=== PATIENT | female | born 1940 | race Caucasian/White ===

== ENCOUNTER 2016-11-12 22:00 | Inpatient (IN) | payer OTHER ==
--- NOTE | 2016-11-13 00:27 | ED ORDER SUMMARY ---
..... Patient: NIRAV FLOREZ OrderSheet VisitID: [id number] [address] [place] [address] 76y, F Registration Date/Time: 11/12/2016 ORDER SHEET Weight: 103.4 kg (stated) Allergies: Penicillins, Sulfa Antibiotics GENERAL ORDERS: Blood Culture (No) (N/A) Urgent (22:11/12/2016 Shwetha De La Fuente) (Ack 22:22 AMcQuoid ER Tech1) (22:40 EHassan R.N.) CBC w Diff Urgent (22:11/12/2016 Shwetha De La Fuente) (Ack 22:22 AMcQuoid ER Tech1) (22:40 EHassan R.N.) CMP Urgent (22:11/12/2016 Shwetha De La Fuente) (Ack 22:22 AMcQuoid ER Tech1) (22:40 EHassan R.N.) UA-Culture if indicated Urgent (22:11/12/2016 Shwetha De La Fuente) (Ack 22:22 AMcQuoid ER Tech1) (22:40 EHassan R.N.) Lactic Acid for Sepsis Protocol Urgent (22:11/12/2016 Shwetha De La Fuente) (Ack 22:22 AMcQuoid ER Tech1) (22:40 EHassan R.N.) PCT (Procalcitonin) Urgent (22:21 11/12/2016 Shwetha De La Fuente) (Ack 22:22 AMcQuoid ER Tech1) (22:40 EHassan R.N.) BNP Urgent (22:53 11/12/2016 Shwetha De La Fuente) (Ack 22:54 AMcQuoid ER Tech1) (22:58 EHassan R.N.) MEDICATION ORDERS: IV FLUIDS: IV Saline Lock (22:11/12/2016 Shwetha De La Fuente) (22:41 EHassan R.N.) Clindamycin IV 600 mg/50mL (NOW) (22:53 11/12/2016 Shwetha De La Fuente) (23:09 EHassan R.N.) IV NS : initial bolus none -, then 1000 mL/hr for X2 (NOW) (23:22 11/12/2016 Shwetha De La Fuente) (23:32 Elvis DoverNSolitario) ORDER SHEET NOTES: This document has not been locked and should not be saved in the medical record.
--- NOTE | 2016-11-13 00:27 | ED ORDER SUMMARY ---
..... Patient: NIRAV FLOREZ OrderSheet [facility] VisitID: [id number] [address] [place] [address] 76y, F Registration Date/Time: 11/12/2016 ORDER SHEET Weight: 103.4 kg (stated) Allergies: Penicillins, Sulfa Antibiotics GENERAL ORDERS: Blood Culture (No) (N/A) Urgent (22:11/12/2016 Shwetha De La Fuente) (Ack 22:22 AMcQuoid ER Tech1) (22:40 EHassan R.N.) CBC w Diff Urgent (22:11/12/2016 Shwetha De La Fuente) (Ack 22:22 AMcQuoid ER Tech1) (22:40 EHassan R.N.) CMP Urgent (22:11/12/2016 Shwetha De La Fuente) (Ack 22:22 AMcQuoid ER Tech1) (22:40 EHassan R.N.) UA-Culture if indicated Urgent (22:11/12/2016 Shwetha De La Fuente) (Ack 22:22 AMcQuoid ER Tech1) (22:40 EHassan R.N.) Lactic Acid for Sepsis Protocol Urgent (22:11/12/2016 Shwetha De La Fuente) (Ack 22:22 AMcQuoid ER Tech1) (22:40 EHassan R.N.) PCT (Procalcitonin) Urgent (22:21 11/12/2016 Shwetha De La Fuente) (Ack 22:22 AMcQuoid ER Tech1) (22:40 EHassan R.N.) BNP Urgent (22:53 11/12/2016 Shwetha De La Fuente) (Ack 22:54 AMcQuoid ER Tech1) (22:58 EHassan R.N.) MEDICATION ORDERS: IV FLUIDS: IV Saline Lock (22:11/12/2016 Shwetha De La Fuente) (22:41 EHassan R.N.) Clindamycin IV 600 mg/50mL (NOW) (22:53 11/12/2016 Shwetha De La Fuente) (23:09 EHassan R.N.) IV NS : initial bolus none -, then 1000 mL/hr for X2 (NOW) (23:22 11/12/2016 Shwetha De La Fuente) (23:32 Elvis DoverNSolitario) ORDER SHEET NOTES: This document has not been locked and should not be saved in the medical record.
--- NOTE | 2016-11-13 00:27 | ED CLINICAL REPORT ---
Clinical Report - Physicians/Mid Levels [facility] [address] [place] [address] 11/12/2016 22:02 Patient: NIRAV FLOREZ *This is a preliminary document and is subject to change Time Seen: 22:04; initial patient contact. Arrived- By ambulance. Historian- patient. HISTORY OF PRESENT ILLNESS Chief Complaint: FALL. The injury occurred just prior to arrival. Fell. Occurred at home. The patient denies pain. No blow to the head, neck pain or loss of consciousness. Not dazed. REVIEW OF SYSTEMS No numbness, loss of vision, chest pain, difficulty breathing or weakness. No nausea or vomiting. She has had dizziness. She sustained a single small skin laceration to the left leg (from a cat bite yesterday.). She has had fever. All systems otherwise negative, except as recorded above. PAST HISTORY Contusion. Syncope. GI Bleeding. Tetanus Status. ADDITIONAL SURGERIES: Cholecystectomy. Hysterectomy. Knee Surgery. Tonsillectomy. Medications: Anastrozole Oral (Tablet 1 mg), Daily. Effexor XR Oral 150, Daily. Furosemide Oral (Tablet 40 mg), 6 pills daily. Gemfibrozil Oral (Tablet 600 mg), daily. Levothroid Oral 100 mcg, daily. Lisinopril Oral (Tablet 20 mg), Daily. Tylenol with Codeine #3 Oral, as needed. Allergies: Penicillins. Sulfa Antibiotics. SOCIAL HISTORY Never smoker. No alcohol use or drug use. ADDITIONAL NOTES The nursing notes have been reviewed with agreement regarding the chief complaint, PMH and patient medications and allergies. PHYSICAL EXAM Vital Signs: 11/12/2016 22:04 BP: 153/54. HR: 111. RR: 20. O2 saturation: 97%. Temp: 100.3 F. Pain level now: 0/10. Have been reviewed. Hypertensive. Tachycardic. Respiratory rate normal. Temperature normal. Oxygen saturation normal. Appearance: Alert. Oriented X3. No acute distress. Head: Head non-tender. No swelling of head. ENT: No dental injury. Dry mucous membranes present. Neck: Painless ROM. Non-tender. CVS: Heart sounds normal. Rate normal. Respiratory: No respiratory distress. Breath sounds normal. Skin: Medium area of cellulitis with erythema and warmth to left leg. Single small, superficial, flap 1.5 cm laceration to left leg. Extremities: Bilateral 2+ pitting edema of the lower extremities involving both lower legs. Neuro: Oriented X 3. LABS, X-RAYS, AND EKG Laboratory Tests: CBC w Diff: (DUYEN: 11/12/2016 22:40) ( [facility] 11/12/2016 23:15) Final results Test Result Flag Units (Reference) WHITE BLOOD COUNT 23.3 H K/uL (4.5-11.5) RED BLOOD COUNT 4.27 M/uL (4.00-5.20) HEMOGLOBIN 13.5 gm/dL (12.0-16.0) HEMATOCRIT 40.2 % (36.0-46.0) MEAN CELL VOLUME 94 fL (80-100) MEAN CORPUSCULAR HGB 32 pg (26-34) MEAN CORPUSCULAR HGB CONC 34 g/dL (31-37) RED CELL DISTRIBUTION WIDTH 13.8 % (11.6-14.8) PLATELET COUNT 221 K/uL (150-400) POLY % 74 % (50-75) BAND % 12 H % (0-8) LYMPH 7 L % (25-40) MONO 7 % (3-14) EOSINOPHIL % 0 % (0-4) BASOPHIL % 0 % (0-2) METAMYELOCYTE % 0 % (0-1) MYELOCYTE 0 % (0-1) OTHER CELL TYPE 0 BNP: (DUYEN: 11/12/2016 22:40) ( [facility] 11/12/2016 23:18) Final results Test Result Flag Units (Reference) B-TYPE NATRIURETIC PEPTIDE 11.3 pg/ml (5-100) Lactate, Serum: (DUYEN: 11/12/2016 22:40) ( [facility] 11/12/2016 23:09) Final results Test Result Flag Units (Reference) LACTIC ACID 2.0 mmol/L (0.4-2.0) [id number]: (DUYEN: 11/12/2016 22:40) ( MsgRcvd 11/12/2016 23:18) Final results Test Result Flag Units (Reference) PROCALCITONIN 2.3 H ng/mL (0-0.5) PCT Concentration: Interpretation : Risk/option for action PCT <=0.5 ng/mL : Systemic : Low risk forinfection(sepsis): progression to severeis not likely. : systemic infection.Local bacterial : CAUTION-PCT levelsinfection is : below 0.5 ng/mL do notpossible. : exclude an infection,because localizedinfections (withoutsystemic signs) may beassociated with suchlow levels. If PCT ismeasured very earlyafter a bacterialchallenge (usually <6hours), these valuesmay still be low. Inthis case PCT shouldbe re-assessed 6-24hours later. PCT >0.5 and : Systemic infection: Moderate risk for<= 2 ng/mL : (sepsis) is : progression to severepossible, but : systemic infection.other conditions : The patient should beare known to : closely monitoredelevate PCT. : both clinically andby re-assessing PCTwithin 6-24 hours. PCT > 2 ng/mL : Systemic infection: High risk for(sepsis) is likely: progression to severeunless other : systemic infection.causes are known. : PCT >= 10 ng/mL : Important systemic: High likelihood ofinflammatory : severe sepsis orresponse, almost : septic shock.exclusively due to:severe bacterial :sepsis or septic :shock. : CMP: (DUYEN: 11/12/2016 22:40) ( MsgRcvd 11/12/2016 23:02) Final results Test Result Flag Units (Reference) GLUCOSE 129 H mg/dL (70-110) BUN 24 H mg/dL (7-18) CREATININE 1.1 mg/dL (0.6-1.3) Estimated GFR 51.19 mL/min Estimated GFR- >60 mL/min Note: Persistent reduction over 3 months in eGFR<60 mL/min/1.73 m2 defines CKD. Patients with eGFR values>=60 mL/min/1.73 m2 may also have CKD if evidence ofpersistent proteinuria. Additional information may be foundat www.kidney.org. SODIUM 135 L mmol/L (136-145) POTASSIUM 4.5 mmol/L (3.5-5.1) CHLORIDE 100 mmol/L (98-107) CARBON DIOXIDE 24 mmol/L (21-32) CALCIUM 8.9 mg/dL (8.5-10.1) TOTAL PROTEIN 6.9 g/dL (6.4-8.2) ALBUMIN 3.6 g/dL (3.3-5.0) BILIRUBIN, TOTAL 0.6 mg/dL (0.0-1.0) ALKALINE PHOSPHATASE 73 U/L (46-116) AST (SGOT) 26 U/L (15-37) ALT (SGPT) 46 U/L (12-78) . PROGRESS AND PROCEDURES Discussed case with hospitalist, (00:[address] Soto. Asked for a dose of Vanc in addition to the Clindamycin already given). Reviewed test results and need for additional work-up. Agreed upon decision to admit. Health care provider will see patient in hospital. John Moreno Dr.
--- NOTE | 2016-11-13 00:27 | ED NURSING NOTES ---
Clinical Report - Nurses [facility] [address] [place] [address] 11/12/2016 22:02 Patient: NIRAV FLOREZ TRIAGE Triage time 2208 PM. Acuity: LEVEL 3. Chief Complaint: (Ground level fall). Alert. No acute distress. SEPSIS SCREEN: Sepsis Screen. Negative (no infection suspected/documented). YAMILA COMA SCORE: Yamila Coma Scale: 15- eyes open spontaneously (4); best verbal response- oriented x 4 (5); best motor response- obeys commands (6). --22:24 Yuki Mattson R.N. 22:04 11/12/16. BP: 153/54. HR: 111. RR: 20. O2 saturation: 97% on room air. Temp: 100.3 F. Pain level now: 0/10. --22:24 Yuki Mattson R.N. late entry - 22:04. --22:49 Yuki Mattson R.N. Weight: 103.4 kg stated. Height/Length: 64 inches Per Patient. BMI: 39.2. --22:05 Yuki Mattson R.N. Medications Anastrozole Oral (Tablet 1 mg), Daily. Effexor XR Oral 150, Daily. Furosemide Oral (Tablet 40 mg), 6 pills daily. Gemfibrozil Oral (Tablet 600 mg), daily. Levothroid Oral 100 mcg, daily. Lisinopril Oral (Tablet 20 mg), Daily. Tylenol with Codeine #3 Oral, as needed. --22:07 Yuki Mattson R.N. Allopurinol Oral 100 mg, daily. --22:26 Yuki Mattson R.N. Allergies Penicillins. Sulfa Antibiotics. --22:07 Yuki Mattson R.N. Medication/allergy information source: the patient. --22:24 Yuki Mattson R.N. History Arrived by EMS. Historian: patient. Primary physician (Dr. Hernández). ( Pt states being in the bathroom and the next thing she remembers she was on the floor, pt did experience nauseous/ no vomiting denies any body aches/H/A/ double vision/ SOB/. Pt's heard a loud noise and found conscious sitting against the bathtub on the floor. Brought here by EMS). This started today. ( Pt noted to have LLE red/swollen, admits to getting bitten by her cat yesterday. Pt noted to have a gash on her left lower leg/dark blue in color). No fever, weakness, cough, difficulty breathing or skin rash. Denies muscle aches. Treatment CHANNEL CEMENTER: None. See EMS report. PAST MEDICAL HX: Immunizations: up-to-date. SOCIAL HX: Former smoker, end date 1989. No alcohol use or drug use. ABUSE ASSESSMENT: No report of abuse. SELF HARM ASSESSMENT: A self harm assessment was performed. The patient answered "no" to the question "Do you have thoughts of harming or killing yourself?" and "Have you recently had thoughts about harming or killing others?". NUTRITIONAL RISK ASSESSMENT: The nutritional risk assessment revealed no deficiencies. FUNCTIONAL ASSESSMENT: Functional assessment: no impairments noted. LEARNING NEEDS ASSESSMENT: The learning needs assessment revealed no barriers. FALL RISK ASSESSMENT: Fall risk assessment completed. Risk factors identified include patient age greater than 65 years, history of fall and impairment of mobility and hearing. Fall interventions initiated. Patient placed on stretcher. Side rails up x2. Patient visible from nurses' station. Call light in reach of patient. Instructed not to get up without assistance. SKIN INTEGRITY ASSESSMENT: Skin integrity risk assessment completed. No skin integrity risk identified. --22:24 Yuki Mattson R.N. PAST MEDICAL HX: Immunizations: up-to-date. The patient is post-menopausal. Sexual history - sexually active. No contraception. ( Tetanus unk). --22:49 Yuki Mattson R.N. PROBLEMS: Contusion. Syncope. GI Bleeding. Tetanus Status. --22:08 Yuki Mattson R.N. Fall. Arthritis. --00:19 Yuki Mattson R.N. Breast Cancer. --01:18 Yuki Mattson R.N. ADDITIONAL SURGERIES: Cholecystectomy. Hysterectomy. Knee Surgery. Tonsillectomy. --22:08 uYki Mattson R.N. Interventions ID band on patient. --22:24 Yuki Mattson R.N. PHYSICAL ASSESSMENT To room via stretcher. GENERAL / NEURO / PSYCH: Alert. Oriented X 4. Appears in no acute distress. HEENT: Pupils equal, round and reactive to light. Mucous membranes are pink. RESPIRATORY: Respirations not labored. Breath sounds within normal limits. CVS: Normal sinus rhythm noted. Pulses within normal limits. GI / : Abdomen soft and nontender and normal bowel sounds. SKIN: Skin intact. Skin is warm and dry. Normal skin turgor. --22:24 Yuki Mattson R.N. NURSING PROGRESS NOTES 22:14 11/12/2016 One (1) unsuccessful IV access attempt including the right antecubital space. Applied pressure dressing. --: Mackenzie Sweet 22:24 11/12/16. BP: 123/79. HR: 109. RR: 20. O2 saturation: 98% on room air. Temp: 100.3 F. Pain level now: 0/10. --22:25 Yuki Mattson R.N. Cardiac rhythm: sinus tachycardia. The initial plan of care for this patient has been created This plan of care was discussed with the patient and family. forest pathology professor, pulse oximeter and end tidal CO2 monitor placed on patient. Patient gowned. Warming measures: blanket applied. Two patient identifiers checked. Call light placed in reach. Side rails up x 2. Bed placed in lowest position. Brakes of bed on. --22:25 Yuki Mattson R.N. 22:36 11/12/2016 Site #1 started via IV in the left antecubital space with an 20g angiocath; two attempts. Blood drawn: rainbow set. Labeled in the presence of the patient and sent to the lab. Saline lock flushed. --22:41 Yuki Mattson R.N. forest pathology professor, pulse oximeter and NIBP monitor placed on patient; monitor alarms on. Patient ID band checked for patient name, birthdate and medical record number: patient confirmed. Blood samples drawn from the left antecubital space with Vacutainer 22g by nurse per protocol ; labeled in presence of the patient and sent to lab: rainbow set: blood culture (1st set). Reassurance given. --22:42 Yuki Mattson R.N. 22:41 11/12/16. BP: 125/98. HR: 109. RR: 20. O2 saturation: 95% on room air. Pain level now: 0/10. --22:42 Yuki Mattson R.N. ( LLE cat bite measures 2cm by 1cm). --22:47 Yuki Mattson R.N. <<STRICKEN ENTRY-- 23:11/12/2016 Started 600 mg of Clindamycin IVPB in bag #1 50 mL; at 100 mL/hr over 30 minute(s) via site #1 via IV pump. IV patency established. IV site checked: no pain, redness, or swelling. IV flushed thoroughly pre- and post-medication administration. --23: Yuki Mattson R.N. --END STRIKE>> Other. --23: Yuki Mattson R.N. 23:11/12/2016 Started 600 mg of Clindamycin IVPB in bag #1 50 mL; at 100 mL/hr over 30 minute(s) via site #1 via IV pump. Allergies verified and confirmed 5 rights. IV patency established. IV site checked: no pain, redness, or swelling. IV flushed thoroughly pre- and post-medication administration. --23: Yuki Mattson R.N. Cardiac rhythm: normal sinus rhythm. forest pathology professor, pulse oximeter and NIBP monitor placed on patient. Reassurance given. Two patient identifiers checked. Call light placed in reach. Side rails up x 2. Brakes of bed on. --23:10 Yuki Mattson R.N. 23:11/12/16. BP: 103/40. HR: 102. RR: 20. O2 saturation: 96%. Pain level now: 0/10. --23:10 Yuki Mattson R.N. 23:32 11/12/2016 Started bag #1 1000 mL IV Fluids IV NS (Saline); at 999 mL/hr over 1 hour(s) via site #1 via dial-a-flow. Allergies verified and confirmed 5 rights. IV patency established. IV site checked: no pain, redness, or swelling. IV flushed thoroughly pre- and post-medication administration. --23:32 Yuki Mattson R.N. 23:33 11/12/2016 Clindamycin IVPB Discontinued: bag #1 infused upon admission. Total amount infused: 50 mL. IV patency established. IV site checked: no pain, redness, or swelling. IV flushed thoroughly. --23:33 Yuki Mattson R.N. 23:31 11/12/16. BP: 115/64. HR: 99. RR: 22. O2 saturation: 95%. Pain level now: 0. --23:36 Ykui Mattson R.N. Cardiac rhythm: normal sinus rhythm. Reassurance given. Reassessment after fluids administered. She is calm and has had no adverse reaction. Overall patient status is the same- she states feels better. GENERAL / NEURO / PSYCH: Denies headache or anxiety. CVS: Normal sinus rhythm noted. GI / : Denies nausea. Two patient identifiers checked. Call light placed in reach. --23:36 Yuki Mattson R.N. 23:29 11/12/2016 Clindamycin IVPB Response: no adverse reaction. --23:39 Yuki Mattson R.N. Patient given inpatient H&P form; patient states she is unable to complete it at this time. --23:46 McQuoid, Jackie, ER Tech1 Reassurance given. Reassessment after fluids administered. She is calm. Overall patient status is improved- she states feels better. Call light placed in reach. Side rails up x 2. Brakes of bed on. --00:31 Yuki Mattson R.N. 00:29 11/13/16. BP: 119/43. HR: 101. RR: 17 (regular). O2 saturation: 97% on room air. Temp: 99.8 F (oral). Pain level now: 02/05. --00:31 Yuki Mattson R.N. 00:37 11/13/2016 TYLENOL W CODEINE (Acetaminophen-Codeine) PO Tablets 1 tab given. Allergies verified and confirmed 5 rights. --00:37 Yuki Mattson R.N. 00:57 11/13/2016 Started 1.5 gm of Vancomycin IVPB in bag #1 500 mL; at 350 mL/hr over 1.5 hour(s) via site #1 via IV pump. Allergies verified and confirmed 5 rights. IV patency established. IV site checked: no pain, redness, or swelling. IV flushed thoroughly pre- and post-medication administration. --01:02 Yuki Mattson R.N. 01:03 11/13/2016 IV Fluids IV NS Bag Change: bag #1 completed. Total amount infused: 1000. STARTED bag #2 (1000 mL) at 999 mL/hr via IV pump. Confirmed 5 rights. IV patency established. IV site checked: no pain, redness, or swelling. IV flushed thoroughly. --01:03 Yuki Mattson R.N. Care transferred and report given (CORINE Hurtado). --01:44 Yuki Mattson R.N. 01:30 11/13/2016 TYLENOL W CODEINE PO Response: no adverse reaction symptoms have improved. --01:45 Yuki Mattson R.N. 01:30 11/13/2016 Vancomycin IVPB Continued: at the rate of 350 mL/hr. 350 mL remaining bag #1. IV patency established. IV site checked: no pain, redness, or swelling. IV flushed thoroughly. --01:45 Yuki Mattson R.N. 01:31 11/13/2016 IV Fluids IV NS Continued: upon transfer at the rate of 999 mL/hr. 800 mL remaining bag #2. IV patency established. IV site checked: no pain, redness, or swelling. IV flushed thoroughly. --01:46 Yuik Mattson R.N. DISPOSITION / DISCHARGE 01:14 11/13/2016 Site #1 reassessed; patent and infusing well. Good blood return present. --01:14 Yuki Mattson R.N. Condition at departure: improved and stable. The goals identified in the patient's plan of care were met. Transported via stretcher by nurse. Report was given to a nurse via a phone call. All questions were answered. Report was acknowledged and care was transferred. (CORINE Hurtado). --01:16 Yuki Mattson R.N. 01:14 11/13/16. BP: 110/31. HR: 93. RR: 16 (regular and unlabored). O2 saturation: 100%. Temp: 98.9 F (oral). Pain level now: 01/06. --01:16 Yuki Mattson R.N. Departure time: 0130 AM. --01:44 Yuki Mattson R.N. Locked/Released at 11/13/2016 1:46 by Yuki Mattson R.N.
--- NOTE | 2016-11-13 00:27 | ED CLINICAL REPORT ---
Clinical Report - Physicians/Mid Levels [facility] [address] [place] [address] 11/12/2016 22:02 Patient: NIRAV FLOREZ *This is a preliminary document and is subject to change Time Seen: 22:04; initial patient contact. Arrived- By ambulance. Historian- patient. HISTORY OF PRESENT ILLNESS Chief Complaint: FALL. The injury occurred just prior to arrival. Fell. Occurred at home. The patient denies pain. No blow to the head, neck pain or loss of consciousness. Not dazed. REVIEW OF SYSTEMS No numbness, loss of vision, chest pain, difficulty breathing or weakness. No nausea or vomiting. She has had dizziness. She sustained a single small skin laceration to the left leg (from a cat bite yesterday.). She has had fever. All systems otherwise negative, except as recorded above. PAST HISTORY Contusion. Syncope. GI Bleeding. Tetanus Status. ADDITIONAL SURGERIES: Cholecystectomy. Hysterectomy. Knee Surgery. Tonsillectomy. Medications: Anastrozole Oral (Tablet 1 mg), Daily. Effexor XR Oral 150, Daily. Furosemide Oral (Tablet 40 mg), 6 pills daily. Gemfibrozil Oral (Tablet 600 mg), daily. Levothroid Oral 100 mcg, daily. Lisinopril Oral (Tablet 20 mg), Daily. Tylenol with Codeine #3 Oral, as needed. Allergies: Penicillins. Sulfa Antibiotics. SOCIAL HISTORY Never smoker. No alcohol use or drug use. ADDITIONAL NOTES The nursing notes have been reviewed with agreement regarding the chief complaint, PMH and patient medications and allergies. PHYSICAL EXAM Vital Signs: 11/12/2016 22:04 BP: 153/54. HR: 111. RR: 20. O2 saturation: 97%. Temp: 100.3 F. Pain level now: 0/10. Have been reviewed. Hypertensive. Tachycardic. Respiratory rate normal. Temperature normal. Oxygen saturation normal. Appearance: Alert. Oriented X3. No acute distress. Head: Head non-tender. No swelling of head. ENT: No dental injury. Dry mucous membranes present. Neck: Painless ROM. Non-tender. CVS: Heart sounds normal. Rate normal. Respiratory: No respiratory distress. Breath sounds normal. Skin: Medium area of cellulitis with erythema and warmth to left leg. Single small, superficial, flap 1.5 cm laceration to left leg. Extremities: Bilateral 2+ pitting edema of the lower extremities involving both lower legs. Neuro: Oriented X 3. LABS, X-RAYS, AND EKG Laboratory Tests: CBC w Diff: (DUYEN: 11/12/2016 22:40) ( [facility] 11/12/2016 23:15) Final results Test Result Flag Units (Reference) WHITE BLOOD COUNT 23.3 H K/uL (4.5-11.5) RED BLOOD COUNT 4.27 M/uL (4.00-5.20) HEMOGLOBIN 13.5 gm/dL (12.0-16.0) HEMATOCRIT 40.2 % (36.0-46.0) MEAN CELL VOLUME 94 fL (80-100) MEAN CORPUSCULAR HGB 32 pg (26-34) MEAN CORPUSCULAR HGB CONC 34 g/dL (31-37) RED CELL DISTRIBUTION WIDTH 13.8 % (11.6-14.8) PLATELET COUNT 221 K/uL (150-400) POLY % 74 % (50-75) BAND % 12 H % (0-8) LYMPH 7 L % (25-40) MONO 7 % (3-14) EOSINOPHIL % 0 % (0-4) BASOPHIL % 0 % (0-2) METAMYELOCYTE % 0 % (0-1) MYELOCYTE 0 % (0-1) OTHER CELL TYPE 0 BNP: (DUYEN: 11/12/2016 22:40) ( [facility] [place]/12[place] 23:18) Final results Test Result Flag Units (Reference) B-TYPE NATRIURETIC PEPTIDE 11.3 pg/ml (5-100) Lactate, Serum: (DUYEN: 11/12/2016 22:40) ( [facility] [place] 11/12/2016 23:09) Final results Test Result Flag Units (Reference) LACTIC ACID 2.0 mmol/L (0.4-2.0) [id number]: (DUYEN: 11/12/2016 22:40) ( [facility]cv[facility] 11/12/2016 23:18) Final results Test Result Flag Units (Reference) PROCALCITONIN 2.3 H ng/mL (0-0.5) PCT Concentration: Interpretation : Risk/option for action PCT <=0.5 ng/mL : Systemic : Low risk forinfection(sepsis): progression to severeis not likely. : systemic infection.Local bacterial : CAUTION-PCT levelsinfection is : below 0.5 ng/mL do notpossible. : exclude an infection,because localizedinfections (withoutsystemic signs) may beassociated with suchlow levels. If PCT ismeasured very earlyafter a bacterialchallenge (usually <6hours), these valuesmay still be low. Inthis case PCT shouldbe re-assessed 6-24hours later. PCT >0.5 and : Systemic infection: Moderate risk for<= 2 ng/mL : (sepsis) is : progression to severepossible, but : systemic infection.other conditions : The patient should beare known to : closely monitoredelevate PCT. : both clinically andby re-assessing PCTwithin 6-24 hours. PCT > 2 ng/mL : Systemic infection: High risk for(sepsis) is likely: progression to severeunless other : systemic infection.causes are known. : PCT >= 10 ng/mL : Important systemic: High likelihood ofinflammatory : severe sepsis orresponse, almost : septic shock.exclusively due to:severe bacterial :sepsis or septic :shock. : CMP: (DUYEN: 11/12/2016 22:40) ( MsgRcvd 11/12/2016 23:02) Final results Test Result Flag Units (Reference) GLUCOSE 129 H mg/dL (70-110) BUN 24 H mg/dL (7-18) CREATININE 1.1 mg/dL (0.6-1.3) Estimated GFR 51.19 mL/min Estimated GFR- >60 mL/min Note: Persistent reduction over 3 months in eGFR<60 mL/min/1.73 m2 defines CKD. Patients with eGFR values>=60 mL/min/1.73 m2 may also have CKD if evidence ofpersistent proteinuria. Additional information may be foundat www.kidney.org. SODIUM 135 L mmol/L (136-145) POTASSIUM 4.5 mmol/L (3.5-5.1) CHLORIDE 100 mmol/L (98-107) CARBON DIOXIDE 24 mmol/L (21-32) CALCIUM 8.9 mg/dL (8.5-10.1) TOTAL PROTEIN 6.9 g/dL (6.4-8.2) ALBUMIN 3.6 g/dL (3.3-5.0) BILIRUBIN, TOTAL 0.6 mg/dL (0.0-1.0) ALKALINE PHOSPHATASE 73 U/L (46-116) AST (SGOT) 26 U/L (15-37) ALT (SGPT) 46 U/L (12-78) . PROGRESS AND PROCEDURES Discussed case with hospitalist, (00:[address] Soto. Asked for a dose of Vanc in addition to the Clindamycin already given). Reviewed test results and need for additional work-up. Agreed upon decision to admit. Health care provider will see patient in hospital. John Moreno Dr.
[2016-11-13 01:40] VITALS: BP 137/28
--- NOTE | 2016-11-13 01:46 | ED MED RECONCILIATION SUMMARY ---
Patient: NIRAV FLOREZ Medication Reconciliation Report Merged With [facility] VisitID: [id number] [address] [place] [address] 76y, F Registration Date/Time: 11/12/2016 Weight: 103.4 kg Height/Length: 64 in. BMI: 39.2 ALLERGIES: Penicillins, Sulfa Antibiotics The patient's Home Medications are listed below: THE FOLLOWING MEDICATIONS NEED TO BE RECONCILED: Allopurinol Oral 100 mg, daily Anastrozole Oral (1 mg), Daily Effexor XR Oral 150, Daily Furosemide Oral (40 mg), 6 pills daily Gemfibrozil Oral (600 mg), daily Levothroid Oral 100 mcg, daily Lisinopril Oral (20 mg), Daily Tylenol with Codeine #3 Oral The source(s) of the original Home Medication information: patient The following Medications were given to the patient in the Emergency Department: Clindamycin [IVPB] IVPB bolus 0, then 600 mg 100 mL/hr, administered: 11/12/2016 11:09:00 PM IV NS IV Fluids bolus 0, then 999 mL/hr, administered: 11/12/2016 11:32:00 PM TYLENOL W CODEINE [PO] PO 1 tab, administered: 11/13/2016 12:37:00 AM Vancomycin [IVPB] IVPB bolus 0, then 1.5 gm 350 mL/hr, administered: 11/13/2016 12:57:00 AM The following Medications were prescribed to the patient: None.
--- NOTE | 2016-11-13 01:46 | ED MAR SUMMARY ---
..... Medication Administration Record [facility] [address] [place] [address] Patient: NIRAV FLOREZ Visit ID: [id number] 76y, F Weight: 103.4 kg Height/Length: 64 in BMI: 39.2 ALLERGIES: Penicillins, Sulfa Antibiotics Start 23:09 11/12/2016 Yuki Mattson R.N., Stop 23:33 11/12/2016 Yuki Mattson R.N. Medication Administered: CLINDAMYCIN [IVPB], Dose: 600 mg IVPB over 30 minute(s), Rate: 100 mL/hr, Dispensed: 50 mL bag, Site: #1 left AC. Medication Ordered: Clindamycin IV 600 mg/50mL (NOW). Start 23:32 11/12/2016 Yuki Mattson R.N., Continued Upon Transfer 01:31 11/13/2016 Yuki Mattson R.N. Medication Administered: IV NS (SALINE), Dose: IV Fluids over 1 hour(s), Rate: 999 mL/hr, Dispensed: 1000 mL bag, Site: #1 left AC. Medication Ordered: IV NS : initial bolus none -, then 1000 mL/hr for X2 (NOW). Given 00:37 11/13/2016 Yuki Mattson R.N. Medication Administered: TYLENOL W CODEINE [PO] (ACETAMINOPHEN-CODEINE), Dose: 1 tab Tablets PO. Medication Ordered: Tylenol w Codeine PO 1 tab (NOW). Start 00:57 11/13/2016 Yuki Mattson R.N., Continued Upon Disposition 01:30 11/13/2016 Yuki Mattson R.N. Medication Administered: VANCOMYCIN [IVPB], Dose: 1.5 gm IVPB over 1.5 hour(s), Rate: 350 mL/hr, Dispensed: 500 mL bag, Site: #1 left AC. Medication Ordered: Vancomycin IV 1.5 gm/500 mL (NOW).
--- NOTE | 2016-11-13 01:46 | ED MAR SUMMARY ---
..... Medication Administration Record [facility] [address] [place] [address] Patient: NIRAV FLOREZ Visit ID: [id number] 76y, F Weight: 103.4 kg Height/Length: 64 in BMI: 39.2 ALLERGIES: Penicillins, Sulfa Antibiotics Start 23:09 11/12/2016 Yuki Mattson R.N., Stop 23:33 11/12/2016 Yuki Mattson R.N. Medication Administered: CLINDAMYCIN [IVPB], Dose: 600 mg IVPB over 30 minute(s), Rate: 100 mL/hr, Dispensed: 50 mL bag, Site: #1 left AC. Medication Ordered: Clindamycin IV 600 mg/50mL (NOW). Start 23:32 11/12/2016 Yuki Mattson R.N., Continued Upon Transfer 01:31 11/13/2016 Yuki Mattson R.N. Medication Administered: IV NS (SALINE), Dose: IV Fluids over 1 hour(s), Rate: 999 mL/hr, Dispensed: 1000 mL bag, Site: #1 left AC. Medication Ordered: IV NS : initial bolus none -, then 1000 mL/hr for X2 (NOW). Given 00:37 11/13/2016 Yuki Mattson R.N. Medication Administered: TYLENOL W CODEINE [PO] (ACETAMINOPHEN-CODEINE), Dose: 1 tab Tablets PO. Medication Ordered: Tylenol w Codeine PO 1 tab (NOW). Start 00:57 11/13/2016 Yuki Mattson R.N., Continued Upon Disposition 01:30 11/13/2016 Yuki Mattson R.N. Medication Administered: VANCOMYCIN [IVPB], Dose: 1.5 gm IVPB over 1.5 hour(s), Rate: 350 mL/hr, Dispensed: 500 mL bag, Site: #1 left AC. Medication Ordered: Vancomycin IV 1.5 gm/500 mL (NOW).
--- NOTE | 2016-11-13 01:46 | ED DISCHARGE INSTRUCTIONS ---
Patient: NIRAV FLOREZ General Instructions [facility] VisitID: [id number] [address] [place] [address] 76y, F Registration Date/Time: 11/12/2016 Cellulitis of the left lower leg. Moderate leukocytosis with bandemia. INSTRUCTIONS Follow-up: Blood pressure screening was not performed during this visit because the patient has an active diagnosis of hypertension. The patient was admitted and blood pressure will be managed during the admission. (Electronically signed by John Moreno Dr. 11/13/2016 0:43)
--- NOTE | 2016-11-13 01:46 | ED DISCHARGE INSTRUCTIONS ---
Patient: NIRAV FLOREZ General Instructions [facility] VisitID: [id number] [address] [place] [address] 76y, F Registration Date/Time: 11/12/2016 Cellulitis of the left lower leg. Moderate leukocytosis with bandemia. INSTRUCTIONS Follow-up: Blood pressure screening was not performed during this visit because the patient has an active diagnosis of hypertension. The patient was admitted and blood pressure will be managed during the admission. (Electronically signed by John Moreno Dr. 11/13/2016 0:43)
--- NOTE | 2016-11-13 01:46 | ED MED RECONCILIATION SUMMARY ---
Patient: NIRAV FLOREZ Medication Reconciliation Report [facility] VisitID: [id number] [address] [place] [address] 76y, F Registration Date/Time: 11/12/2016 Weight: 103.4 kg Height/Length: 64 in. BMI: 39.2 ALLERGIES: Penicillins, Sulfa Antibiotics The patient's Home Medications are listed below: THE FOLLOWING MEDICATIONS NEED TO BE RECONCILED: Allopurinol Oral 100 mg, daily Anastrozole Oral (1 mg), Daily Effexor XR Oral 150, Daily Furosemide Oral (40 mg), 6 pills daily Gemfibrozil Oral (600 mg), daily Levothroid Oral 100 mcg, daily Lisinopril Oral (20 mg), Daily Tylenol with Codeine #3 Oral The source(s) of the original Home Medication information: patient The following Medications were given to the patient in the Emergency Department: Clindamycin [IVPB] IVPB bolus 0, then 600 mg 100 mL/hr, administered: 11/12/2016 11:09:00 PM IV NS IV Fluids bolus 0, then 999 mL/hr, administered: 11/12/2016 11:32:00 PM TYLENOL W CODEINE [PO] PO 1 tab, administered: 11/13/2016 12:37:00 AM Vancomycin [IVPB] IVPB bolus 0, then 1.5 gm 350 mL/hr, administered: 11/13/2016 12:57:00 AM The following Medications were prescribed to the patient: None.
--- NOTE | 2016-11-13 03:44 | Progress Note ---
Subjective General Admission History and Physical Examination Patient Name: Tamika Dwyer Admission Date: November 13, 2016 Primary Care Provider: Taqueria Mead M.D. Attending Physician: Fabian Soto M.D. Admitting Physician: Fabian Soto M.D. SUBJECTIVE Historian: Patient Reliability: Fair Chief Complaint: Fall, left leg laceration, fever History of Present Illness: The patient is a 76-year-old white female with a significant past medical history of hypothyroidism, gout, hyperlipidemia, breast cancer, uterine cancer, who presented to [facility] emergency department secondary to complaints of fall with left leg injury. [facility] ER evaluation was consistent with left lower leg cellulitis status post cat bite and UTI. Secondary to the above, the patient was admitted by Fabian Soto M.D. for further evaluation and treatment. The history of present illness began on the day prior to admission when the patient sustained a laceration due to cat bite on her left lower leg. She experienced an episode of lightheadedness without syncope. The patient felt weak and fell and could not arise. Secondary to this, the patient was transported to [facility] emergency department for further evaluation and treatment. [facility] ER evaluation was consistent with cat bite associated cellulitis left lower leg, and UTI. PAST MEDICAL HISTORY Illnesses: 1. Hypertension 2. Gout 3. Hyperlipidemia 4. Hypothyroidism 5. Breast CA 6. Uterine carcinoma 7. Depression Allergies: 1. Penicillin 2. Sulfa Medications: 1. Anastrozole Oral (Tablet 1 mg), Daily. 2. Effexor XR Oral 150, Daily. 3. Furosemide Oral (Tablet 40 mg), 6 pills daily. 4. Gemfibrozil Oral (Tablet 600 mg), daily. 5. Levothroid Oral 100 mcg, daily. 6. Lisinopril Oral (Tablet 20 mg), Daily. 7. Tylenol with Codeine #3 Oral, as needed. 8. Allopurinol Oral 100 mg, daily. Surgery: 1. Tonsillectomy/adenoidectomy 2. Amputation of first great toe left side 3. Bilateral knee replacement 4. Cholecystectomy 5. Partial hysterectomy 6. Lumpectomy right breast 7. Lipoma removal kidney Injuries: 1. No significant Hospitalizations: 1. For above surgery and medical problems FAMILY HISTORY Parents: 1. Father, , 78 melanoma,, 2. Mother, , 58, heart disease Siblings: 1. None Children: 1. None Other significant family history: None SOCIAL HISTORY 1. Marital Status: 2. Hinduism: Catholic 3. Education: High school, 2 years of college 4. Employment History: [employer] 5. Occupational health exposures: No significant HABITS 1. Tobacco: None 2. Drugs: None 3. Alcohol: None 4. Caffeine: None HEALTH SUPERVISION Item/Test 1. Not reviewed IMMUNIZATIONS: 1. Pneumococcal: 2015 2. Influenza: 2015 3. Tetanus: 2011 ADVANCED DIRECTIVES: 1. The patient has no advanced directives but wishes to be placed on a FULL CODE STATUS during her hospitalization REVIEW OF SYSTEMS Remarkable for those things stated in the history of present illness and past medical history. Seventeen point review of system completed with the following notable findings: General: Fatigue, weakness Skin: Rash, venous stasis dermatitis Eyes: Dryness, cataracts, decreased visual acuity requiring corrective lenses Ears: Hearing loss, bilateral hearing aids Nose: Recurrent sinus infections Respiratory: No complaints Cardiovascular: Peripheral edema, shortness of breath with exertion Genitourinary: Urinary frequency Gastrointestinal: History of peptic ulcer disease, heartburn, reflux Endocrine: Hypothyroidism Psychological: Depression Physical Exam Vital Signs / I&Os Vital Signs Date Time Temp Pulse Resp B/P Pulse O2 O2 Flow FiO2 Ox Delivery Rate 11/13 0140 99.3 94 18 137/28 98 Room Air General Appearance Alert, Oriented X3, Cooperative, No acute distress HEENT Atraumatic, PERRLA, EOMI, Moist mucous membranes Lungs Clear to auscultation, Normal air movement Neck Supple, No JVD, 2+ carotid pulse wo bruit Cardiovascular Regular rate and rhythm, Normal S1 and S2, No murmurs, gallops, rubs Abdomen Normal bowel sounds, Soft, No tenderness Extremities No cyanosis, No clubbing, Bilateral venous stasis dermatitis with left lower leg showing erythematous area lower leg with increased warmth and tenderness to palpation. [id number]. Amputation left great toe Neurological Cranial nerves intact, Strength 5/5 x4 ext's, No lateralizing signs Psych/Mental Status Mental status normal, Mood normal LAB Results Laboratory Tests 11/12 11/12 11/12 11/12 2240 2240 2240 2240 Chemistry Plasma Sodium (136 - 145 mmol/L) 135 Plasma Potassium (3.5 - 5.1 mmol/L) 4.5 Plasma Chloride (98 - 107 mmol/L) 100 CO2 (Enzymatic) (21 - 32 mmol/L) 24 BUN (7 - 18 mg/dL) 24 Creatinine (0.6 - 1.3 mg/dL) 1.1 Est GFR ( Amer) (mL/min) >60 Est GFR (Non-Af Amer) (mL/min) 51.19 Glucose (70 - 110 mg/dL) 129 Lactic Acid (0.4 - 2.0 mmol/L) 2.0 Plasma Calcium (8.5 - 10.1 mg/dL) 8.9 Total Bilirubin (0.0 - 1.0 mg/dL) 0.6 AST (15 - 37 U/L) 26 ALT (12 - 78 U/L) 46 Alkaline Phosphatase (46 - 116 U/L) 73 B-Natriuretic Peptide (5 - 100 pg/ml) 11.3 Total Protein (6.4 - 8.2 g/dL) 6.9 Albumin (3.3 - 5.0 g/dL) 3.6 Procalcitonin (0 - 0.5 ng/mL) 2.3 Hematology WBC (4.5 - 11.5 K/uL) 23.3 RBC (4.00 - 5.20 M/uL) 4.27 Hgb (12.0 - 16.0 gm/dL) 13.5 Hct (36.0 - 46.0 %) 40.2 MCV (80 - 100 fL) 94 MCH (26 - 34 pg) 32 RDW (11.6 - 14.8 %) 13.8 Neut % (Auto) (50 - 75 %) 74 Lymph % (Auto) (25 - 40 %) 7 [place] % (Auto) (3 - 14 %) 7 Eos % (Auto) (0 - 4 %) 0 Baso % (Auto) (0 - 2 %) 0 Band Neutrophils % (0 - 8 %) 12 Metamyelocytes % (0 - 1 %) 0 Myelocytes (0 - 1 %) 0 Other Cell Type 0 Plt Count, EDTA (150 - 400 K/uL) 221 PUBS MCHC (31 - 37 g/dL) 34 Microbiology Date/Time Procedure - Status Source Growth 11/12 2239 Blood Culture - RECD BLOOD 11/12 2239 Blood Culture - RECD BLOOD Assessment and Plan Problem List 1. Cellulitis of left leg without foot Plan -Patient presents with findings of cellulitis left lower leg -Status post cat bite on November 12, 2016 -Patient penicillin allergic placed on ertapenem 1 g IV daily/vancomycin -Monitor -Blood cultures 2 obtained 2. UTI (urinary tract infection) Status Acute Onset Date Unknown Plan -Patient with findings of UTI -Urine C&S pending -Blood cultures pending -Leukocytosis -Ertapenem/vancomycin as noted above 3. Hypothyroidism Status Chronic Onset Date Unknown Plan -Patient with history of hypothyroidism -Check TSH -Continue outpatient medical regimen, awaiting medication list from 4. Hypertension Status Chronic Onset Date Unknown Plan -Patient with history of hypertension -Low-salt diet -Continue outpatient medical regimen -Monitor 5. Gout Status Chronic Onset Date Unknown Plan -Patient with history of gout -Check uric acid -Continue outpatient medical regimen, awaiting medication list from 6. Hyponatremia Status Acute Onset Date Unknown Plan -Patient with findings of hyponatremia, mild -Sodium 135 -Monitor, normal saline IV fluids -No fluid restriction at this time 7. Hyperglycemia Status Chronic Onset Date Unknown Plan -Patient with findings of hyperglycemia -Patient with obesity, BMI 40 -Check hemoglobin A1c -Encourage weight reduction program, nutritional consult 8. Venous stasis dermatitis Status Chronic Onset Date Unknown Plan -patient with venous stasis dermatitis -Monitor -Consider compression stockings post discharge 9. Hyperlipidemia Status Chronic Onset Date Unknown Plan -Patient with history of hyperlipidemia -Check lipid profile -Continue outpatient medical regimen -Awaiting medication list from Current status: Fair, unstable Anticipated discharge date: Anticipated discharge in 3 days Anticipated discharge placement: Home Patient care time: Time spent in chart review, patient interview, physical exam, CPOE, and care documentation: 70 minutes Visit to patient today: 1 Complexity of care: High E&M Codes Admission: Inpt-High/[id number]
[2016-11-13 08:25] VITALS: BP 115/51
[2016-11-13 10:22] VITALS: BP 106/59
[2016-11-13 14:35] VITALS: BP 113/59
[2016-11-13 18:05] VITALS: BP 125/61
--- NOTE | 2016-11-13 22:40 | Progress Note ---
Subjective General Patient was wondering if her leg was getting more swollen and tender but now thinks it is better. Physical Exam Vital Signs / I&Os Vital Signs Date Time Temp Pulse Resp B/P Pulse O2 O2 Flow FiO2 Ox Delivery Rate 11/13 1805 98.8 81 18 125/61 99 Room Air 11/13 1435 98.1 80 18 113/59 100 Room Air 11/13 1022 98.4 84 18 106/59 98 Room Air 11/13 0825 98.6 86 18 115/51 98 Room Air 0.0 11/13 0200 Room Air 11/13 0140 99.3 94 18 137/28 98 Room Air Skin swollen left leg with bilateral venous stasis changes. Assessment and Plan Problem List 1. Cellulitis of left leg without foot Plan add on tube compression hose and monitor still.
[2016-11-13 22:52] VITALS: BP 131/75
[2016-11-14 01:55] VITALS: BP 129/78
[2016-11-14] MEDS ORDERED: EFFEXOR XR37.5 MG PO (02:25)
[2016-11-14] MEDS ORDERED: LASIX40 MG PO (02:26)
[2016-11-14] MEDS ORDERED: LISINOPRIL10 MG PO ×2 (02:26→02:27)
[2016-11-14] MEDS ORDERED: GEMFIBROZIL600 MG PO (02:26)
[2016-11-14] MEDS ORDERED: LEVOTHYROXINE100 MCG PO (02:27)
[2016-11-14] MEDS ORDERED: ASPIRIN 81 LOW81 MG PO (02:28)
[2016-11-14] MEDS ORDERED: TYLENOL/CODEINE #3 PO (02:30)
[2016-11-14 07:20] VITALS: BP 139/57
[2016-11-14 11:07] VITALS: BP 142/72
[2016-11-14 14:31] VITALS: BP 156/77
--- NOTE | 2016-11-14 16:05 | Progress Note ---
Subjective General Pt seen and examined this morning, in comparison to yesterday patient has very significant improvement. The erythema that existed before is almost completely resolved Constitutional Denies: Fever, Chills, Sweats, Weakness, Malaise, Other. Eyes Denies: Pain, Vision Change, Conjunctival Inflammation, Eyelid Inflammation, Redness, Other. Respiratory Denies: Cough, Dry, SOB w/exertion, Wheezing, Hemoptysis, Pleuritic Pain, Sputum , Other. Cardiovascular Denies: Chest Pain, Palpitations, Orthopnea, PND, Edema, Light-headedness, Other. Gastrointestinal Denies: Nausea, Vomiting, Abdominal Pain, Diarrhea, Constipation, Melena, Hematochezia, Other. Genitourinary Denies: Dysuria, Frequency, Incontinence, Hematuria, Retention, Other. Musculoskeletal Leg Pain. Denies: Neck Pain, Shoulder Pain, Arm Pain, Back Pain, Hand Pain, Foot Pain, Other. Skin Other (- dark color of left leg ). Neurological Denies: Weakness, Numbness, Incoordination, Change in speech, Confusion, Seizures, Other. Physical Exam Vital Signs / I&Os Vital Signs Date Time Temp Pulse Resp B/P Pulse O2 O2 Flow FiO2 Ox Delivery Rate 11/14 1431 98.1 69 20 156/77 99 Room Air 11/14 1107 98.4 73 20 142/72 99 Room Air 0.0 11/14 0720 139/57 11/14 0648 98.1 71 20 99 Room Air 0.0 11/14 0155 98.8 74 16 129/78 95 Room Air 11/13 2252 98.8 74 18 131/75 92 Room Air 11/13 1805 98.8 81 18 125/61 99 Room Air I&O 11/13 0800 11/13 1600 11/14 0000 Intake Total 1151 1586 950 Output Total 0 600 1500 Balance 1151 986 -550 General Appearance Alert, Oriented X3, No acute distress HEENT PERRLA, EOMI, Moist mucous membranes Lungs Normal air movement Cardiovascular Regular rate and rhythm, No murmurs, gallops, rubs Abdomen Soft, No tenderness, No guarding Extremities bilateral edema venous stasis bilaterally improved erythema of left leg Skin - improved erythema, continual pre tibial erythema Psych/Mental Status Mental status normal LAB Results Laboratory Tests 11/14 11/14 0530 1030 Chemistry Plasma Sodium (136 - 145 mmol/L) 139 Plasma Potassium (3.5 - 5.1 mmol/L) 4.3 Plasma Chloride (98 - 107 mmol/L) 108 CO2 (Enzymatic) (21 - 32 mmol/L) 25 BUN (7 - 18 mg/dL) 15 Creatinine (0.6 - 1.3 mg/dL) 0.7 Est GFR ( Amer) (mL/min) >60 Est GFR (Non-Af Amer) (mL/min) >60 Glucose (70 - 110 mg/dL) 108 Plasma Calcium (8.5 - 10.1 mg/dL) 7.7 Total Bilirubin (0.0 - 1.0 mg/dL) 0.4 AST (15 - 37 U/L) 26 ALT (12 - 78 U/L) 44 Alkaline Phosphatase (46 - 116 U/L) 64 Total Protein (6.4 - 8.2 g/dL) 5.6 Albumin (3.3 - 5.0 g/dL) 2.9 Hematology WBC (4.5 - 11.5 K/uL) 9.7 RBC (4.00 - 5.20 M/uL) 3.43 Hgb (12.0 - 16.0 gm/dL) 11.1 Hct (36.0 - 46.0 %) 32.8 MCV (80 - 100 fL) 96 MCH (26 - 34 pg) 32 RDW (11.6 - 14.8 %) 14.5 Neut % (Auto) (50 - 75 %) 75.9 Lymph % (Auto) (25 - 40 %) 15.7 [place] % (Auto) (3 - 14 %) 6.8 Eos % (Auto) (0 - 4 %) 1.6 Baso % (Auto) (0 - 2 %) 0 Plt Count, EDTA (150 - 400 K/uL) 164 PUBS MCHC (31 - 37 g/dL) 34 Toxicology Vancomycin Trough (10.0 - 20.0 ug/mL) 15.5 Assessment and Plan Problem List 1. Cellulitis of left leg without foot Plan -c/w antibiotics - will recommend leg elevation when not in bed - will obtain compression stockings 2. UTI (urinary tract infection) Status Acute Onset Date Unknown Plan - stable - no symptoms - c/w antibioitcs 3. Hypothyroidism Status Chronic Onset Date Unknown Plan - no pathology noted - will continue to monitor 4. Venous stasis dermatitis Status Chronic Onset Date Unknown Plan - compression stockings - leg elevation while in bed
[2016-11-14 18:33] VITALS: BP 156/53
[2016-11-14 22:57] VITALS: BP 166/68
[2016-11-15 02:21] VITALS: BP 138/75
[2016-11-15 10:42] VITALS: BP 146/74
--- NOTE | 2016-11-15 15:17 | Provider's Discharge Care Plan ---
Problem, Goal, Plan Problem List 1. Cellulitis of left leg without foot Instructions: Take meds as directed, - keep leg elevated 2. Venous stasis dermatitis
--- NOTE | 2016-11-15 15:17 | Provider's Discharge Care Plan ---
Problem, Goal, Plan Problem List 1. Cellulitis of left leg without foot Instructions: Take meds as directed, - keep leg elevated 2. Venous stasis dermatitis
[2016-11-15] MEDS ORDERED: CLINDAMYCIN HC300 MG PO (15:20)
--- NOTE | 2016-11-15 15:21 | Discharge Summary ---
Discharge Summary Report Admit Date 11/13/16 Discharge Date 11/15/16 Admission Diagnosis lower extremity cellulitis Discharge Diagnosis lower extremity cellulitis Brief History The patient is a 76-year-old white female with a significant past medical history of hypothyroidism, gout, hyperlipidemia, breast cancer, uterine cancer, who presented to [facility] emergency department secondary to complaints of fall with left leg injury. [facility] ER evaluation was consistent with left lower leg cellulitis status post cat bite and UTI. Secondary to the above, the patient was admitted by Fabian Soto M.D. for further evaluation and treatment. The history of present illness began on the day prior to admission when the patient sustained a laceration due to cat bite on her left lower leg. She experienced an episode of lightheadedness without syncope. The patient felt weak and fell and could not arise. Secondary to this, the patient was transported to [facility] emergency department for further evaluation and treatment. [facility] ER evaluation was consistent with cat bite associated cellulitis left lower leg, and UTI. Hospital Course Patient was admitted for lower extremity cellulitis and uti. Patient was treated with IV antibiotics and had improvement within the day of admission itself. Patient was additionally treated with lower extremity elevation and leg compression devices. Patient was seeen to ambulate without difficulty. After 2 days of IV antibiotics and the degreee of improvement it was seen that the patient could be discharged home on oral antibiotics. General Appearance Alert, Oriented X3, No acute distress HEENT PERRLA, Mucous membran moist/pink Lungs Clear to auscultation Cardiovascular Normal S1, Normal S2, No murmurs Abdomen Soft Skin - venous stasis - improved erythema - improved leg swelling Discharge Instructions/Meds - c/w oral antibiotics as directed - continue with leg elevation and leg compression stockings
--- NOTE | 2016-11-15 15:21 | Discharge Summary ---
Discharge Summary Report Admit Date 11/13/16 Discharge Date 11/15/16 Admission Diagnosis lower extremity cellulitis Discharge Diagnosis lower extremity cellulitis Brief History The patient is a 76-year-old white female with a significant past medical history of hypothyroidism, gout, hyperlipidemia, breast cancer, uterine cancer, who presented to [facility] emergency department secondary to complaints of fall with left leg injury. [facility] ER evaluation was consistent with left lower leg cellulitis status post cat bite and UTI. Secondary to the above, the patient was admitted by Fabian Soto M.D. for further evaluation and treatment. The history of present illness began on the day prior to admission when the patient sustained a laceration due to cat bite on her left lower leg. She experienced an episode of lightheadedness without syncope. The patient felt weak and fell and could not arise. Secondary to this, the patient was transported to [facility] emergency department for further evaluation and treatment. [facility] ER evaluation was consistent with cat bite associated cellulitis left lower leg, and UTI. Hospital Course Patient was admitted for lower extremity cellulitis and uti. Patient was treated with IV antibiotics and had improvement within the day of admission itself. Patient was additionally treated with lower extremity elevation and leg compression devices. Patient was seeen to ambulate without difficulty. After 2 days of IV antibiotics and the degreee of improvement it was seen that the patient could be discharged home on oral antibiotics. General Appearance Alert, Oriented X3, No acute distress HEENT PERRLA, Mucous membran moist/pink Lungs Clear to auscultation Cardiovascular Normal S1, Normal S2, No murmurs Abdomen Soft Skin - venous stasis - improved erythema - improved leg swelling Discharge Instructions/Meds - c/w oral antibiotics as directed - continue with leg elevation and leg compression stockings
== END 2016-11-15 15:35 | disposition home or self-care (01) | DRG 603 ==
LOC: ED SRH 22:00 → TRANS SRH 11-13 00:22 → ACUTE2 SRH 11-13 00:22 → TRANS SRH 11-13 00:22 → ACUTE2 SRH 11-13 01:30
PROVIDERS: ADMIT Internal Medicine
DX: L03.116 Cellulitis of left lower limb (principal); S81.852A Open bite, left lower leg, initial encounter; W55.01XA Bitten by cat, initial encounter; N39.0 Urinary tract infection, site not specified; E87.1 Hypo-osmolality and hyponatremia; Y99.8 Other external cause status; R73.9 Hyperglycemia, unspecified; E66.9 Obesity, unspecified; Z68.39 Body mass index [BMI] 39.0-39.9, adult; I10 Essential (primary) hypertension; I87.2 Venous insufficiency (chronic) (peripheral); M10.9 Gout, unspecified
CPT/HCPCS: 83457; 85241; 90004; 90047; 90065; 90074; 90098; 90100; 90148; 90469; 91286; 91295; 91320; 91583; 91643; 91672; 92031; 92690; 92860; 93004; 93140; 95059; 95061